=== PATIENT | female | born 1985 | race Caucasian/White ===

== ENCOUNTER 2022-04-25 21:34 | Inpatient (IN) | payer OTHER ==
[~2022-04-25] VITALS: Ht 165.1 cm; Wt 188.7 kg
[~2022-04-25 21:34] MED LIST: COLACE 100MG C100 MG PO
[2022-04-25 23:09] LABS: HEMOGLOBIN 13.3 gm/dl (12.3-15.3); WHITE BLOOD COUNT 7.8 K/UL (4.5-11.0)
[2022-04-25 23:27] LABS: BUN/CREATININE RATIO 20 (0-10)
[2022-04-26] MEDS ORDERED: LEVOTHYROXINE50 MCG PO (11:18)
[2022-04-26] MEDS ORDERED: SERTRALINE HCL100 MG PO (11:18)
[2022-04-26] MEDS ORDERED: LAMOTRIGINE25 MG PO (11:19)
[2022-04-27 06:16] LABS: HEMOGLOBIN 12.7 gm/dl (12.3-15.3); RED BLOOD COUNT 4.78 M/UL (4.00-5.10); WHITE BLOOD COUNT 9.4 K/UL (4.5-11.0)
[2022-04-27 07:10] LABS: TRIGLYCERIDES 46 mg/dL (0-149)
[2022-04-27 07:51] LABS: BUN/CREATININE RATIO 30 (0-10)
[2022-04-28 06:29] LABS: HEMOGLOBIN 12.1 gm/dl (12.3-15.3); RED BLOOD COUNT 4.56 M/UL (4.00-5.10); WHITE BLOOD COUNT 7.8 K/UL (4.5-11.0)
[2022-04-28 06:49] LABS: BUN/CREATININE RATIO 21 (0-10)
[2022-04-28] MEDS ORDERED: ZOFRAN 4 MG TAB4 MG PO (11:19)
== END 2022-04-28 11:47 | disposition home health service (06) | DRG 439 ==
LOC: ER1 21:34 → CDU 04-26 04:01 → MED SURG 4 04-26 07:33
PROVIDERS: Internal Medicine; Physician Assistant Medical; ADMIT Internal Medicine
DX: K85.10 Biliary acute pancreatitis without necrosis or infection (principal); Z68.44 Body mass index [BMI] 60.0-69.9, adult; Z20.822 Contact with and (suspected) exposure to COVID-19; K76.0 Fatty (change of) liver, not elsewhere classified; K82.8 Other specified diseases of gallbladder; E66.01 Morbid (severe) obesity due to excess calories; K80.80 Other cholelithiasis without obstruction; F90.9 Attention-deficit hyperactivity disorder, unspecified type; F31.9 Bipolar disorder, unspecified; F10.20 Alcohol dependence, uncomplicated; F41.9 Anxiety disorder, unspecified; Z98.891 History of uterine scar from previous surgery
CPT/HCPCS: 36415; 76705; 80048; 80053; 81001; 83690; 84439; 84443; 84478; 84703; 85025; 85027; 96374; 96375; 99285; C9113; J1650; J2270; J2405; Q9967